=== PATIENT | female | born 1950 | race Caucasian/White ===

== ENCOUNTER → 2020-04-30 | Outpatient (CLI) | payer MEDICARE, OTHER | LOC: HEART 5 07:45 | DX: Z01.810 Encounter for preprocedural cardiovascular examination (principal); I08.1 Rheumatic disorders of both mitral and tricuspid valves | CPT/HCPCS: 93306 ==

== ENCOUNTER 2020-12-24 13:51 | Emergency (ER) | payer MEDICARE, OTHER ==
[2020-12-24 15:19] LABS: HEMOGLOBIN 12.8 gm/dl (12.3-15.3); RED BLOOD COUNT 4.28 M/UL (4.00-5.10); WHITE BLOOD COUNT 6.3 K/UL (4.5-11.0)
[2020-12-24 15:55] LABS: BUN/CREATININE RATIO 14 (0-10)
== END 2020-12-24 21:48 | disposition left against medical advice (07) ==
LOC: ER1 13:51
PROVIDERS: Physician Assistant
DX: R42 Dizziness and giddiness (principal); R53.83 Other fatigue; E78.5 Hyperlipidemia, unspecified
CPT/HCPCS: 80053; 82550; 82553; 83874; 84439; 84443; 84484; 85025; 93005; 99284

== ENCOUNTER 2020-12-25 17:45 | Emergency (ER) | payer MEDICARE, OTHER ==
[2020-12-25 19:15] LABS: HEMOGLOBIN 12.2 gm/dl (12.3-15.3); RED BLOOD COUNT 3.92 M/UL (4.00-5.10)
[2020-12-25 19:16] LABS: WHITE BLOOD COUNT 4.4 K/UL (4.5-11.0)
[2020-12-25 19:37] LABS: BUN/CREATININE RATIO 16 (0-10)
== END 2020-12-25 21:25 | disposition home or self-care (01) ==
LOC: ER1 17:45
PROVIDERS: Physician Assistant
DX: R00.2 Palpitations (principal); R00.1 Bradycardia, unspecified; R42 Dizziness and giddiness; E78.5 Hyperlipidemia, unspecified; F17.290 Nicotine dependence, other tobacco product, uncomplicated
CPT/HCPCS: 70450; 71045; 80048; 82550; 82553; 83874; 84484; 85025; 93005; 99285

== ENCOUNTER 2021-04-12 10:06 | Emergency (ER) | payer MEDICARE, OTHER ==
[~2021-04-12] VITALS: Ht 160 cm; Wt 54.4 kg
== END 2021-04-12 15:35 | disposition home or self-care (01) ==
LOC: ER1 10:06
DX: U07.1 COVID-19 (principal); Z88.2 Allergy status to sulfonamides; Z23 Encounter for immunization
CPT/HCPCS: 99283; M0245

== ENCOUNTER → 2021-04-24 | Outpatient (CLI) | payer MEDICARE, OTHER | LOC: MAMO 02-18 11:00 | DX: Z12.31 Encounter for screening mammogram for malignant neoplasm of breast (principal) | CPT/HCPCS: 77063; 77067 ==

== ENCOUNTER → 2021-11-27 | Outpatient (CLI) | payer MEDICARE, OTHER ==
[2021-11-27 10:57] LABS: RED BLOOD COUNT 4.56 M/UL (4.00-5.10)
[2021-11-27 11:24] LABS: BUN/CREATININE RATIO 19 (0-10)
== END ==
LOC: LAB 10:26
PROVIDERS: Internal Medicine Cardiovascular Disease
DX: I67.89 Other cerebrovascular disease (principal); R53.1 Weakness
CPT/HCPCS: 36415; 80053; 84436; 84443; 85027